=== PATIENT | female | born 1980 | race African-American/Black ===

== ENCOUNTER → 2020-11-06 | Outpatient (CLI) | payer OTHER ==
--- NOTE | 2020-11-06 18:41 | RAD ---
Left knee 2 views: Reason for examination: Knee and femur pain. No fracture or dislocation is seen at the left knee. The bone density is normal. No abnormal perioste al reaction is seen. No joint effusion is evident. Joint spaces are maintained. IMPRESSION: No acute abnormality seen at the left knee. Left femur 2 views: No fracture is seen. The bone density is normal. No abnormal periosteal reaction is seen. Hip and kne e joints are maintained. IMPRESSION: No acute abnormality seen at the left femur. Electronically signed by: Urszula Doty MD (11/06/2020 6:39 PM) RONNIE
== END ==
LOC: RAD 12:14
PROVIDERS: ATTEND Family Medicine
DX: Z02.71 Encounter for disability determination (principal); M25.562 Pain in left knee; M54.5 Low back pain; M79.652 Pain in left thigh
CPT/HCPCS: 73552; 73560